=== PATIENT | male | born 2000 | race Hispanic/Latino ===

== ENCOUNTER 2021-07-25 15:51 | Emergency (ER) | payer OTHER ==
[~2021-07-25] VITALS: Ht 167.6 cm; Wt 72.7 kg
[2021-07-25 15:52] VITALS: BP 130/74
[2021-07-25] MEDS ORDERED: VITA500079 PO (16:22)
[2021-07-25] MEDS ORDERED: NAPROXEN 250 MG TAB PO ONE (22:50)
[2021-07-25] MEDS ORDERED: ACETAMINOPHEN 500 MG TAB PO ONE (22:50)
[2021-07-25] MEDS ORDERED: methocarbamoL 750 MG TAB PO ONE (22:50)
[2021-07-25] MEDS ORDERED: METOCLOPRAMIDE 10 MG TAB PO ONE (22:50)
[2021-07-25] MEDS ORDERED: ASPE4PAD TOP (22:55)
[2021-07-25] MEDS ORDERED: METH-1165 PO (22:55)
[2021-07-25] MEDS ORDERED: NAPR-837 PO (22:55)
== END 2021-07-25 23:13 | disposition home or self-care (01) ==
LOC: M ED 15:51
DX: S06.0X0A Concussion without loss of consciousness, initial encounter (principal); S16.1XXA Strain of muscle, fascia and tendon at neck level, initial encounter; V49.49XA Driver injured in collision with other motor vehicles in traffic accident, initial encounter; Y92.410 Unspecified street and highway as the place of occurrence of the external cause; M25.512 Pain in left shoulder; M54.50 Low back pain, unspecified